=== PATIENT | male | born 1985 | race Hispanic/Latino ===

== ENCOUNTER 2021-09-17 18:03 | Emergency (ER) | payer SELFPAY ==
[2021-09-17 18:18] VITALS: BP 120/68; PULSE 66; RESP 18; TEMP 36.6; O2SAT 98
[2021-09-17 19:44] VITALS: BP 114/74; PULSE 64; TEMP 36.6; O2SAT 99
--- NOTE | 2021-09-18 01:21 | PC.NURSE ---
Pt and visitor noted to be leaving. The visitor states he needs to go to work but that the patient will return after he takes him home.
== END 2021-09-18 01:21 | disposition left against medical advice (07) ==
LOC: ANHED 09-18 02:07
DX: F32.A Depression, unspecified (principal)
CPT/HCPCS: 99199

== ENCOUNTER 2021-09-18 01:44 | Emergency (ER) | payer SELFPAY ==
[2021-09-18 01:54] VITALS: BP 120/70; PULSE 71; RESP 18; TEMP 36.2; O2SAT 99
[2021-09-18 04:18] LABS: Glucose Point of Care 102 mg/dl (65-105)
[2021-09-18 04:21] LABS: Add Urine Microscopic? NO; Appearance Urine Clear (Clear); Bilirubin Urine Negative (Negative); Blood Urine Negative (Negative); Color Urine Yellow (Yellow); Glucose Urine UA Negative (Negative); Ketones Urine Negative (Negative); Leukocyte Esterase Ur Negative LEU/UL (Negative); Nitrate Urine Negative (Negative); Protein Urine Negative (Negative); Urobilinogen Urine Negative mg/dL (<2.0)
[2021-09-18 04:40] LABS: Specific Grav Ur 1.004 (1.001-1.035)
--- NOTE | 2021-09-18 04:53 | ED.GENADULT ---
HPI - General Adult General Chief complaint: Unspecified Stated complaint: depression Time Seen by Provider: 09/18/21 03:21 History of Present Illness HPI narrative: Patient is a 36-year-old male with history of depression has not been on medication for over 5 years that presents ER with concerns for depression. 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 Reports she has been having depressed mood and anxiousness and foggy thinking during periods of heavy stress. He thinks he may need antidepressants to help with his situation. No thoughts of self-harm or harming others. Reports on his day off he has normal maryanne and feels relaxed. He does report he has had some urinary frequency but attributes this to drinking a lot of water. No history of diabetes. No dysuria. Denies auditory or visual hallucinations. He reports he is asked his boss for help but help never comes. This situation has been particularly worsening over the last 2 weeks. Related Data Allergies Allergy/AdvReac Type Severity Reaction Status Date / Time No Known Allergies Allergy Verified 09/18/21 03:59 Review of Systems Review of Systems: All systems reviewed & are unremarkable except as noted in HPI and below Cardiovascular: Cardiovascular: Denies chest pain, Denies radiating jaw, neck or arm pain and Denies palpitations Respiratory: Respiratory: Denies cough and Denies dyspnea Gastrointestinal: Gastrointestinal: Denies abdominal pain, Denies nausea and Denies vomiting Psychiatric: Psychiatric: Reports anxiety, Reports depression, Denies hopelessness, Reports irritability, Denies paranoia, Denies homicidal ideation and Denies suicidal ideation PMFSH Past Medical History Medical History (Updated 09/18/21 @ 05:00 by Evan Hinds MD) Depression Surgical History Surgical History (Updated 09/18/21 @ 05:00 by Evan Hinds MD) No pertinent past surgical history Social History Social History Substance use type: does not use Exam Narrative: GENERAL: Well-appearing, well-nourished, and in no acute distress. HEAD: Normocephalic, atraumatic. CHEST: Clear to auscultation. No respiratory distress. HEART: Regular rate and rhythm. Normal peripheral pulses. EXTREMITIES: Normal range of motion. No edema. NEURO: No focal deficits. Alert and oriented x3. PSYCH: Normal mood and affect. Course Course Emergency Course: Spoke with patient at length about his job and the stress that is occurring. Discussed I do not think that antidepressants are going to be what fixes his issues and seems more that he is just unhappy. We discussed the possibility of leaving his job which she would in fact like to do. We discussed ways to look for new jobs including going into other establishments, asking friends/family for leads, or even going to his religion and asking people within that community about job prospects. These are all things he reports he could do. Will discharge with some Xanax to help with situational anxiety which I do think he does experience. Discussed that he should take this medicine as needed and probably should not take it at work because he could become sleepy and potentially injure himself if he is not mentally sharp. Vital Signs Vital signs: Vital Signs Temperature 97.2 F L 09/18/21 01:54 Pulse Rate 71 09/18/21 01:54 Respiratory Rate 18 09/18/21 01:54 Blood Pressure 120/70 09/18/21 01:54 Pulse Oximetry 99 09/18/21 01:54 Temperature 97.2 F L 09/18/21 01:54 Pulse Rate 71 09/18/21 01:54 Respiratory Rate 18 09/18/21 01:54 Blood Pressure 120/70 09/18/21 01:54 Pulse Oximetry 99 09/18/21 01:54 Medical Decision Making Vital Signs Vital Signs: Vital Signs Temperature 97.2 F L 09/18/21 01:54 Pulse Rate 71 09/18/21 01:54 Respiratory Rate 18 09/18/21 01:54 Blood Pressure 120/70 09/18/21 01:54 Pulse Oximetry 99 09/18/21 01:54 Temperature
[2021-09-18 05:07] VITALS: BP 121/74; PULSE 88; RESP 18; O2SAT 95
== END 2021-09-18 05:08 | disposition home or self-care (01) ==
PROVIDERS: Emergency Provider Emergency Medicine
DX: F41.9 Anxiety disorder, unspecified (principal)
CPT/HCPCS: 81003; 82948; 99283